=== PATIENT | female | born 1980 | race Caucasian/White ===

== ENCOUNTER 2018-05-12 16:29 | Inpatient (IN) | payer MEDICAID, OTHER ==
[~2018-05-12] VITALS: Ht 154.9 cm; Wt 61.9 kg
[2018-05-12 18:11] LABS: BASOPHILS % (AUTO) 0.9 % (0.0-2.0); EOSINOPHILS % (AUTO) 1.6 % (1.0-6.0); HEMOGLOBIN 14.8 g/dL (12.0-16.0); LYMPHOCYTES # (AUTO) 2.3 K/uL (1.0-4.8); LYMPHOCYTES % (AUTO) 30.1 % (22.0-44.0); MEAN CORPUSCULAR HGB CONC 34.5 G/dL (31.0-37.0); MEAN CORPUSCULAR VOLUME 87 fL (80-100); MONOCYTES # (AUTO) 0.6 K/uL (0.1-1.0); MONOCYTES % (AUTO) 7.3 % (2.0-9.0); NEUTROPHILS # (AUTO) 4.6 K/uL (1.8-7.7); NEUTROPHILS % (AUTO) 60.1 % (40.0-70.0); PLATELET COUNT (AUTO) 331 K/uL (150-450); RED BLOOD CELL COUNT(AUTO) 4.94 MIL/uL (4.00-5.20); RED CELL DISTRIBUTION WIDTH 13.4 % (11.5-14.5)
[2018-05-12 18:19] LABS: AMPHET/METH SCREEN,URINE POSITIVE (NEGATIVE); BARBITURATE SCREEN, URINE NEGATIVE (NEGATIVE); BENZODIAZEPINES SCREEN,URINE NEGATIVE (NEGATIVE); CANNABINOID SCREEN,URINE POSITIVE (NEGATIVE); COCAINE SCREEN,URINE NEGATIVE (NEGATIVE); METHADONE SCREEN, URINE NEGATIVE (NEGATIVE); OPIATE SCREEN,URINE NEGATIVE (NEGATIVE)
[2018-05-12 18:23] LABS: ANION GAP 8 mmol/L (8-16); CALCIUM, TOTAL 9.5 mg/dL (8.8-10.5); CARBON DIOXIDE 30 mmol/L (22-29); CHLORIDE 100 mmol/L (98-107); CREATININE 0.84 mg/dL (0.60-1.30); GLOMERULAR FILTR. RATE CALC > 60 mL/min (>60); GLUCOSE,RANDOM 92 mg/dL (70-110); POTASSIUM 4.2 mmol/L (3.5-5.1); SODIUM SERUM 138 mmol/L (136-145); UREA NITROGEN, BLOOD 11 mg/dL (7-18)
[2018-05-12 18:25] LABS: PHENCYCLIDINE SCREEN,URINE NEGATIVE (NEGATIVE)
[2018-05-12 18:37] LABS: ALANINE AMINOTRANSFERASE 30 U/L (12-78); ALBUMIN 4.3 g/dL (3.4-5.0); ALKALINE PHOSPHATASE 79 U/L (46-116); ASPARTATE AMINOTRANSFERASE 20 U/L (15-37); BILIRUBIN,TOTAL 0.6 mg/dL (0.1-1.0); HCG,QUANTITATIVE 1 mIU/mL (0-6); TOTAL PROTEIN, SERUM 8.5 g/dL (6.4-8.2)
[2018-05-12] MEDS ORDERED: HALOPERIDOL 5 MG TABLET PO PRN (19:45)
[2018-05-12] MEDS ORDERED: ZOLPIDEM TARTRATE 10 MG TABLET PO PRN (19:45)
[2018-05-12 20:40] LABS: CHOL/HDL RATIO 2.7 (3.9-5.7); CHOLESTEROL 217 mg/dL (131-200); FREE T4 (FREE THYROXINE) 1.43 ng/dL (0.76-1.46); HDL CHOLESTEROL 81 mg/dL (40-60); LDL CHOL (CALC.) 124 mg/dL (0-130); THYROID STIMULATING HORMONE 2.04 uIU/mL (0.36-3.74); TRIGLYCERIDES 58 mg/dL (15-150)
[2018-05-13] MEDS: LORazepam 1 MG TABLET PO PRN ×2 (07:30→16:28)
[2018-05-13] MEDS ORDERED: AMOX500T2 PO (07:58)
[2018-05-13] MEDS ORDERED: AMOXICILLIN TRIHYDRATE 250 MG CAPSULE PO ONE (08:30)
[2018-05-13 15:13] VITALS: BP 100/65
[2018-05-13] MEDS: AMOXICILLIN TRIHYDRATE 500 MG CAPSULE PO SCH (16:26)
[2018-05-13 17:12] VITALS: BP 100/65
[2018-05-13] MEDS ORDERED: CloNIDine HCL 0.1 MG TABLET PO PRN (18:00)
[2018-05-13] MEDS ORDERED: ONDANSETRON HCL 4 MG TABLET PO PRN (18:00)
[2018-05-13] MEDS ORDERED: LOPERAMIDE HCL 2 MG CAPSULE PO PRN (18:00)
[2018-05-13] MEDS ORDERED: BENZOCAINE/MENTHOL LOZENGE MM PRN (18:00)
[2018-05-13] MEDS ORDERED: PETROLATUM,WHITE 71 GM JELLY TP PRN (18:00)
[2018-05-13] MEDS ORDERED: BACITRACIN 28.4 GM OINTMENT TP PRN (18:00)
[2018-05-13] MEDS ORDERED: MAGNESIUM HYDROXIDE SUSPENSION 30 ML UDCUP PO PRN (18:00)
[2018-05-13] MEDS ORDERED: MAG HYDROX/AL HYDROX/SIMETH ES 30 ML SUSPENSION UDCUP PO PRN (18:00)
[2018-05-13] MEDS ORDERED: ALBUTEROL SULFATE HFA 90 MCG/PUFF 8 GM INHALER IH PRN (18:00)
[2018-05-13] MEDS ORDERED: IBUPROFEN 600 MG TABLET PO PRN (18:00)
[2018-05-13] MEDS ORDERED: ACETAMINOPHEN 325 MG TABLET PO PRN (18:00)
[2018-05-13] MEDS: RisperiDONE 1 MG TABLET PO SCH (18:46)
[2018-05-13] MEDS: LITHIUM CARBONATE 300 MG CAPSULE PO SCH (18:46)
[2018-05-14] MEDS: RisperiDONE 1 MG TABLET PO SCH (08:25)
[2018-05-14] MEDS: AMOXICILLIN TRIHYDRATE 500 MG CAPSULE PO SCH ×2 (08:25→13:12)
[2018-05-14] MEDS: LITHIUM CARBONATE 300 MG CAPSULE PO SCH (08:29)
[2018-05-14] MEDS ORDERED: DOCUSATE SODIUM 100 MG CAPSULE PO SCH (09:00)
[2018-05-14] MEDS ORDERED: OMEPRAZOLE 20 MG CAPSULE PO SCH (09:00)
[2018-05-14] MEDS ORDERED: RISP1 PO (11:15)
[2018-05-14] MEDS ORDERED: LITH300C3 PO (11:15)
[2018-05-14] MEDS ORDERED: DSS100 PO (11:17)
[2018-05-14] MEDS ORDERED: OMEP20 PO (11:17)
== END 2018-05-14 13:40 | disposition home or self-care (01) | DRG 753 ==
LOC: EMS 16:36 → 3EI 05-13 13:53
PROVIDERS: ADMIT Psychiatry & Neurology Psychiatry; ATTEND Psychiatry & Neurology Psychiatry
DX: F31.9 Bipolar disorder, unspecified (principal); F12.90 Cannabis use, unspecified, uncomplicated; F15.10 Other stimulant abuse, uncomplicated; F17.210 Nicotine dependence, cigarettes, uncomplicated; F29 Unspecified psychosis not due to a substance or known physiological condition; F41.9 Anxiety disorder, unspecified; G47.00 Insomnia, unspecified; K05.10 Chronic gingivitis, plaque induced; K59.00 Constipation, unspecified; Z56.0 Unemployment, unspecified
CPT/HCPCS: 83036; 84439; 84443; G0480

== ENCOUNTER 2018-08-24 10:12 | Inpatient (IN) | payer MEDICAID, OTHER ==
[~2018-08-24] VITALS: Ht 154.9 cm; Wt 60.0 kg
[~2018-08-24 10:12] MED LIST: AMOX500T2 PO; DSS100 PO; LITH300C3 PO; OMEP20 PO; RISP1 PO
[2018-08-24 11:22] LABS: BASOPHILS % (AUTO) 0.4 % (0.0-2.0); EOSINOPHILS % (AUTO) 0.2 % (1.0-6.0); HEMATOCRIT 41.4 % (36-46); LYMPHOCYTES # (AUTO) 1.1 K/uL (1.0-4.8); LYMPHOCYTES % (AUTO) 11.1 % (22.0-44.0); MEAN CORPUSCULAR HEMOGLOBIN 29.4 pg (26.0-34.0); MEAN CORPUSCULAR HGB CONC 33.8 G/dL (31.0-37.0); MEAN CORPUSCULAR VOLUME 87 fL (80-100); MONOCYTES # (AUTO) 0.6 K/uL (0.1-1.0); MONOCYTES % (AUTO) 6.6 % (2.0-9.0); NEUTROPHILS # (AUTO) 7.9 K/uL (1.8-7.7); NEUTROPHILS % (AUTO) 81.7 % (40.0-70.0); PLATELET COUNT (AUTO) 330 K/uL (150-450); RED BLOOD CELL COUNT(AUTO) 4.77 MIL/uL (4.00-5.20)
[2018-08-24 11:31] LABS: ANION GAP 13 mmol/L (8-16); CALCIUM, TOTAL 9.3 mg/dL (8.8-10.5); CARBON DIOXIDE 23 mmol/L (22-29); CHLORIDE 102 mmol/L (98-107); CREATININE 0.84 mg/dL (0.60-1.30); GLOMERULAR FILTR. RATE CALC > 60 mL/min (>60); GLUCOSE,RANDOM 80 mg/dL (70-110); POTASSIUM 4.5 mmol/L (3.5-5.1); SODIUM SERUM 138 mmol/L (136-145); UREA NITROGEN, BLOOD 12 mg/dL (7-18)
[2018-08-24 11:37] LABS: ALANINE AMINOTRANSFERASE 21 U/L (12-78); ALBUMIN 3.9 g/dL (3.4-5.0); ALKALINE PHOSPHATASE 80 U/L (46-116); ASPARTATE AMINOTRANSFERASE 20 U/L (15-37); BILIRUBIN,TOTAL 0.7 mg/dL (0.1-1.0); TOTAL PROTEIN, SERUM 7.6 g/dL (6.4-8.2)
[2018-08-24] MEDS ORDERED: ACETAMINOPHEN 500 MG TABLET PO ONE (16:00)
[2018-08-24] MEDS ORDERED: DiphenhydrAMINE HCL 25 MG CAPSULE PO ONE (17:30)
[2018-08-24] MEDS ORDERED: LORazepam 2 MG TABLET PO ONE (17:30)
[2018-08-24 18:08] LABS: AMPHET/METH SCREEN,URINE POSITIVE (NEGATIVE); BARBITURATE SCREEN, URINE NEGATIVE (NEGATIVE); BENZODIAZEPINES SCREEN,URINE POSITIVE (NEGATIVE); CANNABINOID SCREEN,URINE POSITIVE (NEGATIVE); COCAINE SCREEN,URINE NEGATIVE (NEGATIVE); METHADONE SCREEN, URINE NEGATIVE (NEGATIVE); OPIATE SCREEN,URINE NEGATIVE (NEGATIVE)
[2018-08-24 18:09] LABS: PHENCYCLIDINE SCREEN,URINE NEGATIVE (NEGATIVE)
[2018-08-24] MEDS ORDERED: HALOPERIDOL 5 MG TABLET PO PRN (18:15)
[2018-08-24] MEDS ORDERED: ZOLPIDEM TARTRATE 10 MG TABLET PO PRN (18:15)
[2018-08-24] MEDS ORDERED: LORazepam 2 MG TABLET PO PRN (18:15)
[2018-08-24 18:23] LABS: APPEARANCE,URINE TURBID (CLEAR); GLUCOSE, URINE (UA) NEGATIVE (NEGATIVE); KETONES,URINE 40 mg/dL (NEGATIVE); LEUKOCYTE ESTERASE ,URINE TRACE (NEGATIVE); NITRATE,URINE NEGATIVE (NEGATIVE); OCCULT BLOOD,URINE SMALL (NEGATIVE); PH,URINE 5.5 (5.0-8.0); PROTEIN,URINE POS 1+ (NEGATIVE); UROBILINOGEN,URINE 0.2 mg/dL (<=1.0)
[2018-08-24 18:25] LABS: BILIRUBIN,URINE PRELIM. POSITIVE (NEGATIVE)
[2018-08-24 18:31] LABS: RBC,URINE 0-2 /HPF (0-2); WBC,URINE 0-2 /HPF (0-5)
[2018-08-24 18:32] LABS: BACTERIA,URINE Few /HPF (None Seen); SQUAMOUS EPITHELIAL CELL,UR Many /LPF (None Seen)
[2018-08-24 18:33] LABS: AMORPHOUS SEDIMENT,UR Many /LPF (None Seen)
[2018-08-24 22:19] VITALS: BP 105/85
[2018-08-24] MEDS ORDERED: MAGNESIUM HYDROXIDE SUSPENSION 30 ML UDCUP PO PRN (22:45)
[2018-08-24] MEDS ORDERED: BACITRACIN 28.4 GM OINTMENT TP PRN (22:45)
[2018-08-24] MEDS ORDERED: PETROLATUM,WHITE 71 GM JELLY TP PRN (22:45)
[2018-08-24] MEDS ORDERED: CloNIDine HCL 0.1 MG TABLET PO PRN (22:45)
[2018-08-24] MEDS ORDERED: ONDANSETRON HCL 4 MG TABLET PO PRN (22:45)
[2018-08-24] MEDS ORDERED: LOPERAMIDE HCL 2 MG CAPSULE PO PRN (22:45)
[2018-08-24] MEDS ORDERED: ALBUTEROL SULFATE HFA 90 MCG/PUFF 8 GM INHALER IH PRN (22:45)
[2018-08-24] MEDS ORDERED: MAG HYDROX/AL HYDROX/SIMETH ES 30 ML SUSPENSION UDCUP PO PRN (22:45)
[2018-08-24] MEDS ORDERED: IBUPROFEN 600 MG TABLET PO PRN (22:45)
[2018-08-24] MEDS ORDERED: ACETAMINOPHEN 325 MG TABLET PO PRN (22:45)
[2018-08-24] MEDS ORDERED: BENZOCAINE/MENTHOL LOZENGE MM PRN (22:45)
[2018-08-25 06:43] LABS: LITHIUM < 0.20 mmol/L (0.60-1.20)
[2018-08-25 07:06] LABS: CHOL/HDL RATIO 2.5 (3.9-5.7); CHOLESTEROL 166 mg/dL (131-200); FREE T4 (FREE THYROXINE) 1.29 ng/dL (0.76-1.46); HDL CHOLESTEROL 67 mg/dL (40-60); LDL CHOL (CALC.) 87 mg/dL (0-130); THYROID STIMULATING HORMONE 0.48 uIU/mL (0.36-3.74); TRIGLYCERIDES 61 mg/dL (15-150)
[2018-08-25 08:30] VITALS: BP 104/60
[2018-08-25] MEDS: DOCUSATE SODIUM 100 MG CAPSULE PO SCH (08:59)
[2018-08-25] MEDS: OMEPRAZOLE 20 MG CAPSULE PO SCH (08:59)
[2018-08-25 16:53] VITALS: BP 96/65
[2018-08-26] MEDS: LITHIUM CARBONATE 300 MG CAPSULE PO SCH ×2 (09:13→16:52)
[2018-08-26] MEDS: RisperiDONE 1 MG TABLET PO SCH ×2 (09:13→16:52)
[2018-08-26] MEDS: OMEPRAZOLE 20 MG CAPSULE PO SCH (09:13)
[2018-08-26] MEDS: DOCUSATE SODIUM 100 MG CAPSULE PO SCH (09:13)
[2018-08-26 09:54] VITALS: BP 102/75
[2018-08-26 18:01] VITALS: BP 110/74
[2018-08-27] MEDS: DOCUSATE SODIUM 100 MG CAPSULE PO SCH (08:52)
[2018-08-27] MEDS: OMEPRAZOLE 20 MG CAPSULE PO SCH (08:52)
[2018-08-27] MEDS: LITHIUM CARBONATE 300 MG CAPSULE PO SCH (08:52)
[2018-08-27] MEDS: RisperiDONE 1 MG TABLET PO SCH (08:52)
[2018-08-27 09:42] VITALS: BP 115/68
[2018-08-27] MEDS ORDERED: OMEP20 PO (10:01)
[2018-08-27] MEDS ORDERED: LITH300C3 PO (10:01)
[2018-08-27] MEDS ORDERED: DSS100 PO (10:01)
[2018-08-27] MEDS ORDERED: RISP1 PO (10:01)
== END 2018-08-27 11:15 | disposition home or self-care (01) | DRG 750 ==
LOC: EMS 10:14 → 3EI 20:44
PROVIDERS: ADMIT Psychiatry & Neurology Psychiatry; ATTEND Psychiatry & Neurology Psychiatry
DX: F25.9 Schizoaffective disorder, unspecified (principal); R45.851 Suicidal ideations; F12.90 Cannabis use, unspecified, uncomplicated; F17.200 Nicotine dependence, unspecified, uncomplicated; F31.9 Bipolar disorder, unspecified; F41.9 Anxiety disorder, unspecified; G47.00 Insomnia, unspecified; K59.00 Constipation, unspecified; M25.511 Pain in right shoulder; M54.2 Cervicalgia; Z71.6 Tobacco abuse counseling; Z56.0 Unemployment, unspecified
CPT/HCPCS: 72040; 84439; 84443; G0480

== ENCOUNTER 2020-11-28 08:59 | Inpatient (IN) | payer MEDICAID, OTHER ==
[~2020-11-28] VITALS: Ht 157.5 cm; Wt 69.4 kg
[~2020-11-28 08:59] MED LIST changes: -AMOX500T2 PO; -RISP1 PO; +RISP1TAB48 PO
[2020-11-28] MEDS ORDERED: ACETAMINOPHEN 500 MG TABLET PO ONE (09:30)
[2020-11-28 09:52] LABS: BASOPHILS % (AUTO) 0.5 % (0.0-2.0); EOSINOPHILS % (AUTO) 0.5 % (1.0-6.0); HEMATOCRIT 40.7 % (36-46); HEMOGLOBIN 13.5 g/dL (12.0-16.0); LYMPHOCYTES % (AUTO) 12.2 % (22.0-44.0); MEAN CORPUSCULAR HEMOGLOBIN 27.9 pg (26.0-34.0); MEAN CORPUSCULAR HGB CONC 33.1 G/dL (31.0-37.0); MEAN CORPUSCULAR VOLUME 84 fL (80-100); MONOCYTES # (AUTO) 0.5 K/uL (0.1-1.0); MONOCYTES % (AUTO) 5.6 % (2.0-9.0); NEUTROPHILS # (AUTO) 6.7 K/uL (1.8-7.7); NEUTROPHILS % (AUTO) 81.2 % (40.0-70.0); PLATELET COUNT (AUTO) 341 K/uL (150-450); RED BLOOD CELL COUNT(AUTO) 4.83 MIL/uL (4.00-5.20); RED CELL DISTRIBUTION WIDTH 14.1 % (11.5-14.5)
[2020-11-28 10:00] LABS: CALCIUM, TOTAL 9.1 mg/dL (8.8-10.5); CARBON DIOXIDE 28 mmol/L (22-29); CHLORIDE 102 mmol/L (98-107); GLOMERULAR FILTR. RATE CALC 55 mL/min (>60); GLUCOSE,RANDOM 84 mg/dL (70-110); POTASSIUM 4.5 mmol/L (3.5-5.1); UREA NITROGEN, BLOOD 7 mg/dL (7-18)
[2020-11-28 10:12] LABS: ALANINE AMINOTRANSFERASE 21 U/L (12-78); ALBUMIN 3.9 g/dL (3.4-5.0); ALKALINE PHOSPHATASE 89 U/L (46-116); ANION GAP 9 mmol/L (8-16); ASPARTATE AMINOTRANSFERASE 20 U/L (15-37); BILIRUBIN,TOTAL 0.6 mg/dL (0.1-1.0); HCG,QUANTITATIVE 1 mIU/mL (0-6); SODIUM SERUM 139 mmol/L (136-145); TOTAL PROTEIN, SERUM 7.8 g/dL (6.4-8.2)
[2020-11-28 10:57] LABS: AMPHET/METH SCREEN,URINE NEGATIVE (NEGATIVE); BARBITURATE SCREEN, URINE NEGATIVE (NEGATIVE); BENZODIAZEPINES SCREEN,URINE NEGATIVE (NEGATIVE); CANNABINOID SCREEN,URINE POSITIVE (NEGATIVE); COCAINE SCREEN,URINE NEGATIVE (NEGATIVE); METHADONE SCREEN, URINE NEGATIVE (NEGATIVE); OPIATE SCREEN,URINE NEGATIVE (NEGATIVE); PHENCYCLIDINE SCREEN,URINE NEGATIVE (NEGATIVE)
[2020-11-28 11:03] LABS: COVID AG,FIA SOURCE NASOPHARYNGEAL
[2020-11-28] MEDS ORDERED: HALOPERIDOL 5 MG TABLET PO PRN (12:30)
[2020-11-28] MEDS: LORazepam 2 MG TABLET PO PRN (17:13)
[2020-11-28 17:21] VITALS: BP 119/78
[2020-11-28] MEDS: ZOLPIDEM TARTRATE 10 MG TABLET PO PRN (20:52)
[2020-11-29 04:29] VITALS: BP 116/72
[2020-11-29] MEDS: LORazepam 2 MG TABLET PO PRN ×3 (05:27→17:33)
[2020-11-29] MEDS ORDERED: MAG HYDROX/AL HYDROX/SIMETH ES 30 ML SUSPENSION UDCUP PO PRN (07:15)
[2020-11-29] MEDS ORDERED: ALBUTEROL SULFATE HFA 90 MCG/PUFF 8 GM INHALER IH PRN (07:15)
[2020-11-29] MEDS ORDERED: PETROLATUM,WHITE 28 GM JELLY TP PRN (07:15)
[2020-11-29] MEDS ORDERED: ACETAMINOPHEN 325 MG TABLET PO PRN (07:15)
[2020-11-29] MEDS ORDERED: CloNIDine HCL 0.1 MG TABLET PO PRN (07:15)
[2020-11-29] MEDS ORDERED: DOCUSATE SODIUM 100 MG CAPSULE PO PRN (07:15)
[2020-11-29] MEDS ORDERED: ONDANSETRON HCL 4 MG TABLET PO PRN (07:15)
[2020-11-29] MEDS ORDERED: OMEPRAZOLE 20 MG CAPSULE PO PRN (07:15)
[2020-11-29] MEDS ORDERED: MAGNESIUM HYDROXIDE SUSPENSION 30 ML UDCUP PO PRN (07:15)
[2020-11-29] MEDS ORDERED: IBUPROFEN 600 MG TABLET PO PRN (07:15)
[2020-11-29] MEDS ORDERED: BACITRACIN 28 GM OINTMENT TP PRN (07:15)
[2020-11-29] MEDS ORDERED: LOPERAMIDE HCL 2 MG CAPSULE PO PRN (07:15)
[2020-11-29] MEDS ORDERED: BENZOCAINE/MENTHOL LOZENGE PO PRN (07:15)
[2020-11-29 16:11] VITALS: BP 100/61
[2020-11-29] MEDS: ZOLPIDEM TARTRATE 10 MG TABLET PO PRN (20:02)
[2020-11-30 00:31] VITALS: BP 112/68
[2020-11-30] MEDS: RisperiDONE 1 MG TABLET PO SCH ×3 (08:31→16:16)
[2020-11-30 08:33] VITALS: BP 98/59
[2020-11-30] MEDS: LORazepam 2 MG TABLET PO PRN ×2 (11:10→16:13)
[2020-11-30 16:19] VITALS: BP 114/79
[2020-11-30] MEDS: ZOLPIDEM TARTRATE 10 MG TABLET PO PRN (20:11)
[2020-12-01 04:12] VITALS: BP 110/70
[2020-12-01] MEDS: LORazepam 2 MG TABLET PO PRN ×2 (08:13→13:29)
[2020-12-01] MEDS: RisperiDONE 1 MG TABLET PO SCH ×3 (08:13→16:37)
[2020-12-01 08:15] VITALS: BP 108/64
[2020-12-01 16:03] VITALS: BP 100/62
== END 2020-12-01 21:20 | disposition home or self-care (01) | DRG 750 ==
LOC: EMS 09:13 → B3A 16:33
PROVIDERS: ADMIT Psychiatry & Neurology Psychiatry; ATTEND Psychiatry & Neurology Psychiatry
DX: F25.9 Schizoaffective disorder, unspecified (principal); F12.90 Cannabis use, unspecified, uncomplicated; F41.9 Anxiety disorder, unspecified; G47.00 Insomnia, unspecified; Z20.822 Contact with and (suspected) exposure to COVID-19
CPT/HCPCS: 80053; 84702; 85025; 99285; G0480

== ENCOUNTER 2022-05-31 18:08 | Inpatient (IN) | payer MEDICAID, OTHER ==
[~2022-05-31] VITALS: Ht 154.9 cm; Wt 83.2 kg
[~2022-05-31 18:08] MED LIST changes: -DSS100 PO; -LITH300C3 PO; -OMEP20 PO
[2022-05-31] MEDS ORDERED: LORazepam 2 MG TABLET PO ONE (20:15)
[2022-05-31] MEDS ORDERED: HALOPERIDOL 5 MG TABLET PO ONE (20:15)
[2022-05-31 21:18] LABS: BASOPHILS % (AUTO) 0.5 % (0.0-2.0); EOSINOPHILS % (AUTO) 0.9 % (1.0-6.0); HEMATOCRIT 40.2 % (36-46); HEMOGLOBIN 13.1 g/dL (12.0-16.0); LYMPHOCYTES # (AUTO) 2.3 K/uL (1.0-4.8); LYMPHOCYTES % (AUTO) 24.8 % (22.0-44.0); MEAN CORPUSCULAR HEMOGLOBIN 27.7 pg (26.0-34.0); MEAN CORPUSCULAR HGB CONC 32.6 G/dL (31.0-37.0); MEAN CORPUSCULAR VOLUME 85 fL (80-100); MONOCYTES # (AUTO) 0.5 K/uL (0.1-1.0); MONOCYTES % (AUTO) 5.4 % (2.0-9.0); NEUTROPHILS # (AUTO) 6.3 K/uL (1.8-7.7); NEUTROPHILS % (AUTO) 68.4 % (40.0-70.0); PLATELET COUNT (AUTO) 338 K/uL (150-450); RED BLOOD CELL COUNT(AUTO) 4.73 MIL/uL (4.00-5.20); RED CELL DISTRIBUTION WIDTH 14.6 % (11.5-14.5)
[2022-05-31 21:18] LABS: COVID AG,FIA SOURCE NASAL SWAB
[2022-05-31 21:31] LABS: ALANINE AMINOTRANSFERASE 70 U/L (12-78); ALBUMIN 3.7 g/dL (3.4-5.0); ALKALINE PHOSPHATASE 75 U/L (46-116); ANION GAP 9 mmol/L (8-16); ASPARTATE AMINOTRANSFERASE 213 U/L (15-37); BILIRUBIN,TOTAL 0.7 mg/dL (0.1-1.0); CARBON DIOXIDE 25 mmol/L (22-29); CHLORIDE 99 mmol/L (98-107); CREATININE 0.74 mg/dL (0.60-1.30); GLUCOSE,RANDOM 108 mg/dL (70-110); SODIUM SERUM 133 mmol/L (136-145); TOTAL PROTEIN, SERUM 7.3 g/dL (6.4-8.2); UREA NITROGEN, BLOOD 9 mg/dL (7-18)
[2022-05-31 21:32] LABS: GLOMERULAR FILTR. RATE CALC > 60 mL/min (>60)
[2022-05-31 21:33] LABS: POTASSIUM 2.9 mmol/L (3.5-5.1)
[2022-05-31] MEDS ORDERED: POTASSIUM CHLORIDE 20 MEQ ER TABLET PO ONE ×2 (21:45→22:15)
[2022-05-31 22:05] VITALS: BP 146/99
[2022-05-31] MEDS ORDERED: DOCUSATE SODIUM 100 MG CAPSULE PO PRN (22:15)
[2022-05-31] MEDS ORDERED: ONDANSETRON HCL 4 MG TABLET PO PRN (22:15)
[2022-05-31] MEDS ORDERED: GuaiFENesin/D-METHORPHAN [SUGAR-FREE] 200-20MG/10 ML SYRUP UDCUP PO PRN (22:15)
[2022-05-31] MEDS ORDERED: MAG HYDROX/AL HYDROX/SIMETH ES 30 ML SUSPENSION UDCUP PO PRN (22:15)
[2022-05-31] MEDS ORDERED: NICOTINE 14 MG/24 HOUR PATCH TD PRN (22:15)
[2022-05-31] MEDS ORDERED: CloNIDine HCL 0.1 MG TABLET PO PRN (22:15)
[2022-05-31] MEDS ORDERED: IBUPROFEN 400 MG TABLET PO PRN (22:15)
[2022-05-31] MEDS ORDERED: PETROLATUM,WHITE 28 GM JELLY TP PRN (22:15)
[2022-05-31] MEDS ORDERED: MAGNESIUM HYDROXIDE SUSPENSION 30 ML UDCUP PO PRN (22:15)
[2022-05-31] MEDS ORDERED: ACETAMINOPHEN 325 MG TABLET PO PRN (22:15)
[2022-05-31] MEDS ORDERED: ALBUTEROL SULFATE HFA 90 MCG/PUFF 8 GM INHALER IH PRN (22:15)
[2022-05-31] MEDS ORDERED: LOPERAMIDE HCL 2 MG CAPSULE PO PRN (22:15)
[2022-05-31] MEDS ORDERED: INFLUENZA VIRUS VACCINE QVS 2022-23 (6MO+)/PF 60 MCG/0.5 ML SYRINGE IM. ONE (23:15)
[2022-06-01 10:02] VITALS: BP 112/69
[2022-06-01 16:07] VITALS: BP 115/84
[2022-06-01 16:21] VITALS: BP 115/86
[2022-06-01 17:07] VITALS: BP 117/85
[2022-06-01] MEDS ORDERED: GuaiFENesin/D-METHORPHAN [SUGAR-FREE] 200-20MG/10 ML SYRUP UDCUP PO PRN (19:15)
[2022-06-01] MEDS ORDERED: ONDANSETRON HCL 4 MG TABLET PO PRN (19:15)
[2022-06-01] MEDS ORDERED: MAG HYDROX/AL HYDROX/SIMETH ES 30 ML SUSPENSION UDCUP PO PRN (19:15)
[2022-06-01] MEDS ORDERED: PETROLATUM,WHITE 28 GM JELLY TP PRN (19:15)
[2022-06-01] MEDS ORDERED: MAGNESIUM HYDROXIDE SUSPENSION 30 ML UDCUP PO PRN (19:15)
[2022-06-01] MEDS ORDERED: LOPERAMIDE HCL 2 MG CAPSULE PO PRN (19:15)
[2022-06-01] MEDS ORDERED: CloNIDine HCL 0.1 MG TABLET PO PRN (19:15)
[2022-06-01] MEDS ORDERED: ACETAMINOPHEN 325 MG TABLET PO PRN (19:15)
[2022-06-01] MEDS ORDERED: DOCUSATE SODIUM 100 MG CAPSULE PO PRN (19:15)
[2022-06-02 05:49] LABS: APPEARANCE,URINE TURBID (CLEAR); BILIRUBIN,URINE NEGATIVE (NEGATIVE); GLUCOSE, URINE (UA) NEGATIVE (NEGATIVE); KETONES,URINE 40-60 mg/dL (NEGATIVE); LEUKOCYTE ESTERASE ,URINE NEGATIVE (NEGATIVE); NITRATE,URINE NEGATIVE (NEGATIVE); OCCULT BLOOD,URINE NEGATIVE (NEGATIVE); PROTEIN,URINE 30-70 mg/dL (NEGATIVE); SPECIFIC GRAVITIY, URINE 1.027 (1.003-1.030); UROBILINOGEN,URINE <=1.0 mg/dL (<=1.0)
[2022-06-02 05:56] LABS: AMPHET/METH SCREEN,URINE NEGATIVE (NEGATIVE); BARBITURATE SCREEN, URINE NEGATIVE (NEGATIVE); BENZODIAZEPINES SCREEN,URINE NEGATIVE (NEGATIVE); CANNABINOID SCREEN,URINE POSITIVE (NEGATIVE); COCAINE SCREEN,URINE NEGATIVE (NEGATIVE); METHADONE SCREEN, URINE NEGATIVE (NEGATIVE); OPIATE SCREEN,URINE NEGATIVE (NEGATIVE)
[2022-06-02 05:57] LABS: PHENCYCLIDINE SCREEN,URINE NEGATIVE (NEGATIVE)
[2022-06-02] MEDS: HALOPERIDOL 5 MG TABLET PO PRN (08:10)
[2022-06-02] MEDS: ARIPiprazole 10 MG TABLET PO SCH (08:10)
[2022-06-02] MEDS: LORazepam 2 MG TABLET PO PRN (08:10)
[2022-06-02] MEDS: SERTRALINE HCL 50 MG TABLET PO SCH (08:10)
[2022-06-02 08:30] VITALS: BP 147/88
[2022-06-02] MEDS: ZOLPIDEM TARTRATE 10 MG TABLET PO PRN (22:54)
[2022-06-03] MEDS: LORazepam 2 MG TABLET PO PRN ×2 (03:19→09:18)
[2022-06-03 04:01] VITALS: BP 126/84
[2022-06-03 08:49] VITALS: BP 142/95
[2022-06-03] MEDS: ARIPiprazole 10 MG TABLET PO SCH (09:18)
[2022-06-03] MEDS: SERTRALINE HCL 50 MG TABLET PO SCH (09:18)
[2022-06-03 16:15] VITALS: BP 125/79
[2022-06-03 16:17] VITALS: BP 125/79
[2022-06-03] MEDS: ZOLPIDEM TARTRATE 10 MG TABLET PO PRN (20:03)
[2022-06-04 05:06] VITALS: BP 132/82
[2022-06-04] MEDS: LORazepam 2 MG TABLET PO PRN ×2 (05:34→13:04)
[2022-06-04] MEDS: ARIPiprazole 10 MG TABLET PO SCH (09:49)
[2022-06-04] MEDS: SERTRALINE HCL 50 MG TABLET PO SCH (09:49)
[2022-06-04 10:18] VITALS: BP 151/86
[2022-06-04] MEDS: HALOPERIDOL 5 MG TABLET PO PRN (13:03)
[2022-06-04] MEDS: ALBUTEROL SULFATE HFA 90 MCG/PUFF 8 GM INHALER IH PRN (13:03)
[2022-06-04 16:21] VITALS: BP 138/80
[2022-06-05] MEDS: ZOLPIDEM TARTRATE 10 MG TABLET PO PRN (00:05)
[2022-06-05] MEDS: ALBUTEROL SULFATE HFA 90 MCG/PUFF 8 GM INHALER IH PRN ×2 (00:06→08:49)
[2022-06-05] MEDS: SERTRALINE HCL 50 MG TABLET PO SCH (08:28)
[2022-06-05] MEDS: ARIPiprazole 10 MG TABLET PO SCH (08:28)
[2022-06-05 08:48] VITALS: BP 134/90
[2022-06-05] MEDS ORDERED: HydrOXYzine PAMOATE 25 MG CAPSULE PO PRN (09:15)
[2022-06-05 16:53] VITALS: BP 135/78
[2022-06-05] MEDS: TraZODone HCL 50 MG TABLET PO SCH (22:07)
[2022-06-05] MEDS: HALOPERIDOL 5 MG TABLET PO PRN (22:08)
[2022-06-06 05:22] VITALS: BP 130/80
[2022-06-06] MEDS: IBUPROFEN 400 MG TABLET PO PRN ×2 (05:25→20:03)
[2022-06-06] MEDS: ALBUTEROL SULFATE HFA 90 MCG/PUFF 8 GM INHALER IH PRN (05:26)
[2022-06-06 06:05] LABS: ALANINE AMINOTRANSFERASE 49 U/L (12-78); ALBUMIN 3.9 g/dL (3.4-5.0); ALKALINE PHOSPHATASE 86 U/L (46-116); ANION GAP 5 mmol/L (8-16); ASPARTATE AMINOTRANSFERASE 33 U/L (15-37); BILIRUBIN,TOTAL 0.4 mg/dL (0.1-1.0); CALCIUM, TOTAL 9.2 mg/dL (8.8-10.5); CARBON DIOXIDE 28 mmol/L (22-29); CHLORIDE 102 mmol/L (98-107); CREATININE 0.92 mg/dL (0.60-1.30); GLOMERULAR FILTR. RATE CALC > 60 mL/min (>60); GLUCOSE,RANDOM 119 mg/dL (70-110); PHOSPHORUS 3.3 mg/dL (2.5-4.9); POTASSIUM 3.4 mmol/L (3.5-5.1); SODIUM SERUM 135 mmol/L (136-145); TOTAL PROTEIN, SERUM 7.5 g/dL (6.4-8.2); UREA NITROGEN, BLOOD 6 mg/dL (7-18)
[2022-06-06 07:22] LABS: COVID AG,FIA SOURCE NASAL SWAB
[2022-06-06 08:00] VITALS: BP 121/76
[2022-06-06] MEDS: SERTRALINE HCL 50 MG TABLET PO SCH (09:49)
[2022-06-06] MEDS: ARIPiprazole 10 MG TABLET PO SCH (09:49)
[2022-06-06] MEDS: NICOTINE 14 MG/24 HOUR PATCH TD PRN (12:27)
[2022-06-06] MEDS ORDERED: POTASSIUM CHLORIDE 20 MEQ ER TABLET PO ONE (15:30)
[2022-06-06 16:00] VITALS: BP 145/93
[2022-06-06] MEDS: TraZODone HCL 50 MG TABLET PO SCH (20:09)
[2022-06-06 20:12] VITALS: BP 147/87
[2022-06-07] MEDS: IBUPROFEN 400 MG TABLET PO PRN (05:55)
[2022-06-07] MEDS: ALBUTEROL SULFATE HFA 90 MCG/PUFF 8 GM INHALER IH PRN (06:00)
[2022-06-07] MEDS ORDERED: LORATADINE 10 MG TABLET PO PRN (07:00)
[2022-06-07] MEDS: SERTRALINE HCL 50 MG TABLET PO SCH (08:28)
[2022-06-07] MEDS: ARIPiprazole 10 MG TABLET PO SCH (08:28)
[2022-06-07 09:03] VITALS: BP 116/92
[2022-06-07] MEDS: NICOTINE 14 MG/24 HOUR PATCH TD PRN (11:30)
== END 2022-06-07 17:15 | disposition home or self-care (01) | DRG 750 ==
LOC: EMS 18:19 → 3EI 22:19
PROVIDERS: ADMIT Psychiatry & Neurology Psychiatry; ATTEND Psychiatry & Neurology Psychiatry
DX: F25.1 Schizoaffective disorder, depressive type (principal); R45.851 Suicidal ideations; E87.6 Hypokalemia; F15.90 Other stimulant use, unspecified, uncomplicated; Z20.822 Contact with and (suspected) exposure to COVID-19; F17.210 Nicotine dependence, cigarettes, uncomplicated; F12.10 Cannabis abuse, uncomplicated; F19.10 Other psychoactive substance abuse, uncomplicated; R03.0 Elevated blood-pressure reading, without diagnosis of hypertension; F31.9 Bipolar disorder, unspecified; R74.01 Elevation of levels of liver transaminase levels; F41.9 Anxiety disorder, unspecified; Z59.00 Homelessness unspecified; Z79.899 Other long term (current) drug therapy
CPT/HCPCS: 80053; 80307; 81003; 83690; 83735; 84100; 84132; 84702; 85025; 99285; G0480; J3535; Q0162

== ENCOUNTER 2025-02-09 13:16 | Inpatient (IN) | payer MEDICAID, OTHER ==
[~2025-02-09] VITALS: Ht 160 cm; Wt 52.0 kg
[2025-02-09] MEDS ORDERED: 0.9% SODIUM CHLORIDE 10 ML SYRINGE IVP PRN (13:30)
[2025-02-09] MEDS: SODIUM CHLORIDE 0.9% 1,700 ML IV ONE (13:46)
[2025-02-09] MEDS: CefTRIAXone 1 GM/DEXTROSE 50 ML IV ONE (13:47)
[2025-02-09 13:50] LABS: PLATELET COUNT (AUTO) 234 K/uL (150-450); RED BLOOD CELL COUNT(AUTO) 4.01 MIL/uL (4.00-5.20); RED CELL DISTRIBUTION WIDTH 14.7 % (11.5-14.5); WHITE BLOOD COUNT (AUTO) 13.2 K/uL (4.5-11.0)
[2025-02-09 13:55] LABS: COVID AG,FIA SOURCE NASAL SWAB
[2025-02-09 13:56] LABS: CALCIUM, TOTAL 7.8 mg/dL (8.8-10.5); CREATININE 1.80 mg/dL (0.60-1.30); GLOMERULAR FILTR. RATE CALC 31 mL/min (>60); GLUCOSE,RANDOM 98 mg/dL (70-110); SODIUM SERUM 130 mmol/L (136-145); UREA NITROGEN, BLOOD 20 mg/dL (7-18)
[2025-02-09 14:02] LABS: ASPARTATE AMINOTRANSFERASE 90 U/L (15-37); CREATINE KINASE, TOTAL ONLY 56 U/L (26-192); TOTAL PROTEIN, SERUM 6.2 g/dL (6.4-8.2)
[2025-02-09 14:04] LABS: LACTIC ACID 0.8 mmol/L (0.4-2.0); TROPONIN I-HIGH SENSITIVITY 5 ng/L (<51)
[2025-02-09 14:05] LABS: APPEARANCE,URINE HAZY (CLEAR); GLUCOSE, URINE (UA) NEGATIVE (NEGATIVE); LEUKOCYTE ESTERASE ,URINE MODERATE (NEGATIVE); NITRATE,URINE NEGATIVE (NEGATIVE); OCCULT BLOOD,URINE SMALL (NEGATIVE); SPECIFIC GRAVITIY, URINE 1.008 (1.003-1.030)
[2025-02-09 14:13] LABS: SARS-COV2 (COVID) ANTIGEN,FIA Negative (Negative)
[2025-02-09 14:14] LABS: INFLUENZA TYPE A NEGATIVE FOR TYPE A (NEGATIVE); INFLUENZA TYPE B NEGATIVE FOR TYPE B (NEGATIVE)
[2025-02-09 14:17] LABS: COARSE GRANULAR CASTS,URINE 0-2 /LPF (None Seen); SQUAMOUS EPITHELIAL CELL,UR Many /LPF (None Seen)
[2025-02-09] MEDS: KETOROLAC TROMETHAMINE 30 MG/ML VIAL IVP ONE ×3 (19:10→19:24)
[2025-02-09] MEDS ORDERED: ONDANSETRON HCL 4 MG/2 ML VIAL IVP PRN (20:15)
[2025-02-09] MEDS ORDERED: ZOLPIDEM TARTRATE 5 MG TABLET PO PRN (20:15)
[2025-02-09] MEDS ORDERED: BISACODYL 10 MG RECTAL RECTAL SUPPOSITORY PR PRN (20:15)
[2025-02-09] MEDS ORDERED: MAGNESIUM HYDROXIDE SUSPENSION 30 ML UDCUP PO PRN (20:15)
[2025-02-09] MEDS: *CLINICAL-LEVOFLOXACIN IVPB DOSING CLINICAL ONE (20:20)
[2025-02-09] MEDS: LEVOFLOXACIN 500 MG/D5% WATER 100 ML IV ONE (20:30)
[2025-02-09] MEDS: DOCUSATE SODIUM 100 MG CAPSULE PO SCH (21:00)
[2025-02-09 21:21] VITALS: BP 115/70; PULSE 105; RESP 18; TEMP 99.5; O2SAT 98
[2025-02-09] MEDS: SODIUM CHLORIDE 0.9% 1,000 ML IV ONE (21:24)
[2025-02-09] MEDS: MORPHINE SULFATE 2 MG/ML SYRINGE IVP PRN (21:35)
[2025-02-09] MEDS: HEPARIN SODIUM,PORCINE 5,000 UNITS/ML VIAL SQ SCH (23:13)
[2025-02-10] VITALS (9 sets, daily range): BP systolic 97–115; BP diastolic 57–72; PULSE 68–118; RESP 18; TEMP 98.1–102.4; O2SAT 97–100
[2025-02-10] MEDS: LEVOFLOXACIN 500 MG/D5% WATER 100 ML IV ONE (00:54)
[2025-02-10] MEDS: ACETAMINOPHEN 325 MG TABLET PO PRN (02:52)
[2025-02-10 06:23] LABS: PLATELET COUNT (AUTO) 224 K/uL (150-450); RED BLOOD CELL COUNT(AUTO) 3.72 MIL/uL (4.00-5.20); RED CELL DISTRIBUTION WIDTH 14.8 % (11.5-14.5); WHITE BLOOD COUNT (AUTO) 11.5 K/uL (4.5-11.0)
[2025-02-10 06:49] LABS: CALCIUM, TOTAL 7.8 mg/dL (8.8-10.5); CREATININE 1.12 mg/dL (0.60-1.30); GLOMERULAR FILTR. RATE CALC 53.0 mL/min (>60); GLUCOSE,RANDOM 109.0 mg/dL (70-110); SODIUM SERUM 131.0 mmol/L (136-145); UREA NITROGEN, BLOOD 11.0 mg/dL (7-18)
[2025-02-10] MEDS: HYDROCODONE/ACETAMINOPHEN 5-325 MG TABLET PO PRN (06:56)
[2025-02-10] MEDS: PANTOPRAZOLE SODIUM 40 MG DR TABLET PO SCH (09:12)
[2025-02-10] MEDS: SODIUM CHLORIDE 0.9% 1,000 ML IV SCH (12:46)
[2025-02-10] MEDS: LEVOFLOXACIN 750 MG/D5% WATER 150 ML IV SCH (17:03)
[2025-02-10 19:45] LABS: PH,URINE DRUG SCREEN 5.5 (5.0-8.0)
[2025-02-10 19:51] LABS: ALCOHOL, URINE DRUG SCREEN NEGATIVE (NEGATIVE); AMPHET/METH SCREEN,URINE POSITIVE (NEGATIVE); BARBITURATE SCREEN, URINE NEGATIVE (NEGATIVE); CANNABINOID SCREEN,URINE NEGATIVE (NEGATIVE); COCAINE SCREEN,URINE NEGATIVE (NEGATIVE); METHADONE SCREEN, URINE NEGATIVE (NEGATIVE)
[2025-02-10] MEDS ORDERED: LEVOFLOXACIN 250 MG/D5% WATER 50 ML IV SCH (20:00)
[2025-02-11 04:20] VITALS: BP 117/70; PULSE 92; RESP 19; TEMP 100.9; O2SAT 99
[2025-02-11 08:00] VITALS: BP 97/70; PULSE 84; RESP 19; TEMP 98.4; O2SAT 100
[2025-02-11 10:32] LABS: PLATELET COUNT (AUTO) 317 K/uL (150-450); RED BLOOD CELL COUNT(AUTO) 3.63 MIL/uL (4.00-5.20); RED CELL DISTRIBUTION WIDTH 15.2 % (11.5-14.5); WHITE BLOOD COUNT (AUTO) 9.5 K/uL (4.5-11.0)
[2025-02-11 10:40] LABS: CALCIUM, TOTAL 8.1 mg/dL (8.8-10.5); CREATININE 0.82 mg/dL (0.60-1.30); GLOMERULAR FILTR. RATE CALC > 60 mL/min (>60); GLUCOSE,RANDOM 133 mg/dL (70-110); SODIUM SERUM 136 mmol/L (136-145); UREA NITROGEN, BLOOD 7 mg/dL (7-18)
[2025-02-11] MEDS ORDERED: MORPHINE SULFATE 2 MG/ML SYRINGE IVP PRN (14:00)
[2025-02-11 14:52] VITALS: BP 107/72; PULSE 101; RESP 19; TEMP 100; O2SAT 97
[2025-02-11 19:53] VITALS: BP 100/69; PULSE 83; RESP 20; TEMP 98.4; O2SAT 99
[2025-02-11 22:38] LABS: INFLUENZA A-RTPCR,COMBO NEGATIVE (NEGATIVE); INFLUENZA B-RTPCR,COMBO NEGATIVE (NEGATIVE); RESPIRATORY SYNCYTIAL VRS-PCR NEGATIVE (NEGATIVE); SARS COVID19 RTPCR, COMBO NEGATIVE (NEGATIVE)
[2025-02-12 04:29] VITALS: BP 107/75; PULSE 95; RESP 18; TEMP 98.4; O2SAT 99
[2025-02-12 08:23] VITALS: BP 111/88; PULSE 72; RESP 18; TEMP 98.1; O2SAT 99
[2025-02-12 11:44] LABS: PLATELET COUNT (AUTO) 396 K/uL (150-450); RED BLOOD CELL COUNT(AUTO) 3.77 MIL/uL (4.00-5.20); RED CELL DISTRIBUTION WIDTH 15.3 % (11.5-14.5); WHITE BLOOD COUNT (AUTO) 4.4 K/uL (4.5-11.0)
[2025-02-12 12:03] LABS: ASPARTATE AMINOTRANSFERASE 15 U/L (15-37); CALCIUM, TOTAL 8.3 mg/dL (8.8-10.5); CREATININE 0.74 mg/dL (0.60-1.30); GLOMERULAR FILTR. RATE CALC > 60 mL/min (>60); GLUCOSE,RANDOM 160 mg/dL (70-110); SODIUM SERUM 139 mmol/L (136-145); TOTAL PROTEIN, SERUM 5.4 g/dL (6.4-8.2); UREA NITROGEN, BLOOD 3 mg/dL (7-18)
[2025-02-12 16:20] VITALS: BP 114/71; PULSE 78; RESP 18; TEMP 98; O2SAT 98
[2025-02-12 19:20] VITALS: BP 108/75; PULSE 82; RESP 18; TEMP 98.4; O2SAT 99
[2025-02-13 03:10] VITALS: BP 118/79; PULSE 78; RESP 18; TEMP 98.2; O2SAT 98
[2025-02-13] MEDS ORDERED: LEVO750T68 PO (07:51)
[2025-02-13 08:22] VITALS: BP 99/69; PULSE 83; RESP 18; TEMP 98.1; O2SAT 99
== END 2025-02-13 16:15 | disposition home or self-care (01) | DRG 720 ==
LOC: EMS 13:17 → EDH 17:22 → 5S 20:50 → 6S 02-10 14:35
PROVIDERS: ADMIT Internal Medicine; ATTEND Internal Medicine
DX: A41.9 Sepsis, unspecified organism (principal); N17.9 Acute kidney failure, unspecified; N13.6 Pyonephrosis; Z20.822 Contact with and (suspected) exposure to COVID-19; F31.9 Bipolar disorder, unspecified; R05.9 Cough, unspecified; B96.20 Unspecified Escherichia coli [E. coli] as the cause of diseases classified elsewhere; D64.9 Anemia, unspecified; F15.10 Other stimulant abuse, uncomplicated; F11.10 Opioid abuse, uncomplicated
CPT/HCPCS: 71045; 76700; 80048; 80053; 80076; 80307; 81001; 82550; 83605; 83880; 84145; 84484; 85025; 85379; 85610; 87040; 87077; 87086; 87186; 87637; 87804; 93005; 96365; 99291; G0378; J0696; J1644; J1885; J1956; J2270; J7030; 36415-L1; 36415-TC